=== PATIENT | female | born 1980 | race African-American/Black ===

== ENCOUNTER 2019-08-18 16:01 | Emergency (ER) | payer SELFPAY ==
[~2019-08-18] VITALS: Ht 165.1 cm; Wt 55.0 kg
[2019-08-18] MEDS ORDERED: DIPHENHYDRAMINE 50MG/ML VIAL IM STA (17:05)
[2019-08-18] MEDS ORDERED: HALOPERIDOL LACTATE 5MG/ML VIAL IM STA (17:05)
[2019-08-18] MEDS ORDERED: LORAZEPAM 2MG/ML CPJ IM ONE (17:15)
[2019-08-18 20:03] LABS: HCG SCREEN NEGATIVE
[2019-08-18 20:06] LABS: CHLORIDE 106 mEq/L (98-107)
[2019-08-18 20:12] LABS: BASOPHILS % 1.4 % (0.0-2.0); EOSINOPHILS % 0.6 % (0.0-5.0); ETHANOL BLOOD < 10 mg/dL; HEMATOCRIT. 26.6 % (36.0-48.0); HEMOGLOBIN. 7.7 g/dL (12.0-16.0); MEAN CORPUSCULAR HEMOGLOBIN 18.1 pg (28.0-32.0); MEAN CORPUSCULAR VOLUME 62.3 fL (81.0-99.0); MEAN PLATELET VOLUME 5.9 fl (7.4-10.4); MONOCYTES % 9.3 % (2.0-8.0); NEUTROPHILS % 49.7 % (40.0-76.0); PLATELET 384 x1000/uL (130-400); RED BLOOD CELL COUNT 4.26 mill/uL (4.2-5.4)
[2019-08-18 21:19] LABS: PLATELET ESTIMATE NORMAL
[2019-08-18 21:26] LABS: CLARITY URINE CLEAR (CLEAR); COLOR URINE YELLOW (YELLOW); KETONES URINE NEGATIVE (NEGATIVE); LEUKOCYTE ESTERASE URINE NEGATIVE (NEGATIVE); NITRITE URINE NEGATIVE (NEGATIVE); OCCULT BLOOD URINE NEGATIVE (NEGATIVE); PROTEIN URINE NEGATIVE (NEGATIVE); SPECIFIC GRAVITY URINE 1.025 (1.005-1.030); UROBILINOGEN URINE 0.2 E.U./dL (0.2-1.0)
[2019-08-18 21:39] LABS: *AMPHETAMINES SCREEN URINE PRESUMTIVE POSITIVE (NEGATIVE); *BARBITURATES SCREEN URINE NEGATIVE (NEGATIVE); *BENZODIAZEPINES SCREEN URINE NEGATIVE (NEGATIVE); *COCAINE SCREEN URINE PRESUMTIVE POSITIVE (NEGATIVE); METHADONE URINE SCREEN NEGATIVE (NEGATIVE); OPIATES URINE SCREEN NEGATIVE (NEGATIVE); PHENCYCLIDINE URINE SCREEN PRESUMTIVE POSITIVE (NEGATIVE)
[2019-08-18 22:21] LABS: CANNABINOID URINE SCREEN PRESUMTIVE POSITIVE (NEGATIVE)
[2019-08-19 12:42] VITALS: BP 132/78
== END 2019-08-19 12:43 | disposition home or self-care (01) ==
LOC: ER 16:01
DX: T40.991A Poisoning by other psychodysleptics [hallucinogens], accidental (unintentional), initial encounter (principal); T40.5X1A Poisoning by cocaine, accidental (unintentional), initial encounter; R41.82 Altered mental status, unspecified; F19.10 Other psychoactive substance abuse, uncomplicated; G40.909 Epilepsy, unspecified, not intractable, without status epilepticus; Y92.89 Other specified places as the place of occurrence of the external cause
CPT/HCPCS: 36415; 80053; 80305; 80320; 81003; 82962; 84703; 85025; 96372; 99283; J1200; J1630; J2060; A4315; G0480